=== PATIENT | male | born 1990 | race Caucasian/White ===

== ENCOUNTER 2016-08-06 08:56 | Emergency (ER) | payer OTHER | END 2016-08-06 10:55 | disposition home or self-care (01) | LOC: D.ER 08:56 | DX: T30.0 Burn of unspecified body region, unspecified degree (principal); X08.8XXA Exposure to other specified smoke, fire and flames, initial encounter; Y93.89 Activity, other specified; Y92.9 Unspecified place or not applicable; F17.200 Nicotine dependence, unspecified, uncomplicated ==

== ENCOUNTER 2017-01-18 23:32 | Emergency (ER) | payer OTHER | END 2017-01-19 02:05 | disposition home or self-care (01) | LOC: D.ER 23:32 | DX: S53.401A Unspecified sprain of right elbow, initial encounter (principal); W19.XXXA Unspecified fall, initial encounter; F17.200 Nicotine dependence, unspecified, uncomplicated ==

== ENCOUNTER 2017-01-21 21:48 | Emergency (ER) | payer OTHER ==
[2017-01-21 23:26] LABS: BASOPHILS 0.3 % (0-2); EOSINOPHILS 4.1 % (0-7); HEMATOCRIT 43.7 % (42.0-54.0); HEMOGLOBIN 15.1 g/dL (13.5-17.5); IMMATURE GRANULOCYTES 0.1 % (0-5); LYMPHOCYTES 41.1 % (15-50); MCH 29.7 pg (26.0-34.0); MCHC 34.6 g/dL (31.0-37.0); MCV 85.9 fL (80.0-100.0); MEAN PLATELET VOLUME 11.6 fL (7.4-10.4); MONOCYTES 9.2 % (2-11); NEUTROPHILS 45.2 % (40-80); PLATELET COUNT 193 10x3/uL (130-400); RBC 5.09 10x6/uL (4.20-6.10); RDW 13.4 % (11.5-14.5); WBC 6.8 10x3/uL (4.8-10.8)
[2017-01-21 23:46] LABS: ALKALINE PHOSPHATASE 81 U/L (46-116); ALT (SGPT) 36 U/L (10-68); BILIRUBIN - TOTAL 0.37 mg/dL (0.2-1.3); CALC OSMOLALITY 281 mosm/kg (275-300); CALCIUM 8.7 mg/dL (8.5-10.1); CARBON DIOXIDE 29.4 mmol/L (21.0-32.0); CHLORIDE - SERUM 103 mmol/L (98-107); CREATININE - SERUM 1.2 mg/dL (0.6-1.3); GLUCOSE 106 mg/dL (74-106); POTASSIUM - SERUM 3.4 mmol/L (3.5-5.1); PROTEIN - SERUM 7.3 g/dL (6.4-8.2); SODIUM 141 mmol/L (136-145); UREA NITROGEN 15 mg/dL (7-18); eGFR NON AFRICAN AMERICAN 77 mL/min (90-120)
[2017-01-22 00:10] LABS: CKMB 1.2 U/L (0.0-3.6); CREATINE KINASE 271 UL (21-232); TROPONIN-I < 0.017 ng/mL (0.000-0.060)
== END 2017-01-22 00:30 | disposition home or self-care (01) ==
LOC: D.ER 21:48
PROVIDERS: Nurse Practitioner Family
DX: M94.0 Chondrocostal junction syndrome [Tietze] (principal); R07.89 Other chest pain; F17.200 Nicotine dependence, unspecified, uncomplicated

== ENCOUNTER 2017-03-01 22:50 | Emergency (ER) | payer OTHER ==
[2017-03-02 00:27] LABS: BASOPHILS 0.5 % (0-2); EOSINOPHILS 5.1 % (0-7); HEMOGLOBIN 14.4 g/dL (13.5-17.5); IMMATURE GRANULOCYTES 0.5 % (0-5); LYMPHOCYTES 31.9 % (15-50); MCH 29.1 pg (26.0-34.0); MCHC 34.3 g/dL (31.0-37.0); MONOCYTES 10.5 % (2-11); NEUTROPHILS 51.5 % (40-80); PLATELET COUNT 193 10x3/uL (130-400); RBC 4.94 10x6/uL (4.20-6.10); RDW 13.8 % (11.5-14.5); WBC 8.8 10x3/uL (4.8-10.8)
[2017-03-02 00:43] LABS: APPEARANCE CLEAR (CLEAR); BILIRUBIN NEGATIVE (NEGATIVE); COLOR YELLOW (YELLOW); GLUCOSE NEGATIVE (NEGATIVE); KETONE NEGATIVE (NEGATIVE); LEUKOCYTE ESTERASE TRACE (NEGATIVE); NITRITE NEGATIVE (NEGATIVE); PROTEIN TRACE mg/dL (NEGATIVE); UROBILINOGEN NORMAL (NORMAL)
[2017-03-02 00:44] LABS: BACTERIA NONE SEEN /hpf (NONE SEEN); CALCIUM OXALATE CRYSTALS 0-5 /hpf (NONE SEEN); EPITHELIAL CELLS 0-5 /hpf (0-5); RED CELLS - URINE 0-5 /hpf (0-5); WHITE CELLS - URINE 0-5 /hpf (0-5)
[2017-03-02 00:47] LABS: ALBUMIN 4.1 g/dL (3.4-5.0); ALKALINE PHOSPHATASE 70 U/L (46-116); ALT (SGPT) 34 U/L (10-68); CALC OSMOLALITY 284 mosm/kg (275-300); CALCIUM 8.7 mg/dL (8.5-10.1); CARBON DIOXIDE 26.2 mmol/L (21.0-32.0); CHLORIDE - SERUM 107 mmol/L (98-107); CREATININE - SERUM 1.2 mg/dL (0.6-1.3); GLUCOSE 100 mg/dL (74-106); POTASSIUM - SERUM 3.4 mmol/L (3.5-5.1); PROTEIN - SERUM 6.9 g/dL (6.4-8.2); SODIUM 143 mmol/L (136-145); UREA NITROGEN 12 mg/dL (7-18); eGFR NON AFRICAN AMERICAN 77 mL/min (90-120)
== END 2017-03-02 02:00 | disposition home or self-care (01) ==
LOC: D.ER 22:50
PROVIDERS: Emergency Medicine
DX: S51.811A Laceration without foreign body of right forearm, initial encounter (principal); X58.XXXA Exposure to other specified factors, initial encounter; Y93.89 Activity, other specified; Y92.89 Other specified places as the place of occurrence of the external cause; F17.200 Nicotine dependence, unspecified, uncomplicated

== ENCOUNTER 2017-06-01 03:47 | Emergency (ER) | payer OTHER ==
[2017-06-01 04:57] LABS: BASOPHILS 0.3 % (0-2); HEMATOCRIT 45.1 % (42.0-54.0); HEMOGLOBIN 15.5 g/dL (13.5-17.5); IMMATURE GRANULOCYTES 0.3 % (0-5); LYMPHOCYTES 35.7 % (15-50); MCHC 34.4 g/dL (31.0-37.0); MCV 87.2 fL (80.0-100.0); MEAN PLATELET VOLUME 11.5 fL (7.4-10.4); MONOCYTES 10.9 % (2-11); NEUTROPHILS 46.8 % (40-80); PLATELET COUNT 219 10x3/uL (130-400); RBC 5.17 10x6/uL (4.20-6.10); RDW 12.8 % (11.5-14.5); WBC 7.1 10x3/uL (4.8-10.8)
[2017-06-01 05:22] LABS: ALBUMIN 3.9 g/dL (3.4-5.0); ALKALINE PHOSPHATASE 69 U/L (46-116); ALT (SGPT) 30 U/L (10-68); BILIRUBIN - TOTAL 0.26 mg/dL (0.2-1.3); CALC OSMOLALITY 270 mosm/kg (275-300); CALCIUM 9.2 mg/dL (8.5-10.1); CARBON DIOXIDE 26.8 mmol/L (21.0-32.0); CHLORIDE - SERUM 101 mmol/L (98-107); GLUCOSE 99 mg/dL (74-106); POTASSIUM - SERUM 4.1 mmol/L (3.5-5.1); PROTEIN - SERUM 7.3 g/dL (6.4-8.2); SODIUM 135 mmol/L (136-145); UREA NITROGEN 16 mg/dL (7-18); eGFR NON AFRICAN AMERICAN > 90 mL/min (90-120)
[2017-06-01 05:46] LABS: AMYLASE - SERUM 114 U/L (25-115); C-REACTIVE PROTEIN 0.9 mg/dL (0.0-0.9); CREATINE KINASE 279 UL (21-232); LIPASE 636 U/L (73-393)
[2017-06-01 05:47] LABS: CKMB 1.2 U/L (0.0-3.6)
[2017-06-01 06:07] LABS: UDS - AMPHET NEGATIVE QUAL (NEGATIVE); UDS - BARB NEGATIVE QUAL (NEGATIVE); UDS - BENZO NEGATIVE QUAL (NEGATIVE); UDS - COCAINE NEGATIVE QUAL (NEGATIVE); UDS - OPIATE NEGATIVE QUAL (NEGATIVE); UDS - PCP NEGATIVE QUAL (NEGATIVE); UDS - THC NEGATIVE QUAL (NEGATIVE)
[2017-06-01 06:08] LABS: APPEARANCE CLEAR (CLEAR); COLOR STRAW (YELLOW); NITRITE NEGATIVE (NEGATIVE); PROTEIN NEGATIVE (NEGATIVE)
[2017-06-01 06:09] LABS: BILIRUBIN NEGATIVE (NEGATIVE); GLUCOSE NEGATIVE (NEGATIVE); HCG URINE NEGATIVE; KETONE NEGATIVE (NEGATIVE); UROBILINOGEN NORMAL (NORMAL)
== END 2017-06-01 08:05 | disposition home or self-care (01) ==
LOC: D.ER 03:47
PROVIDERS: Family Medicine
DX: R53.1 Weakness (principal); M54.9 Dorsalgia, unspecified

== ENCOUNTER 2017-12-13 16:34 | Emergency (ER) | payer OTHER ==
[~2017-12-13] VITALS: Ht 177.8 cm; Wt 90.9 kg
[2017-12-13 16:43] VITALS: Ht 177.8 cm; Wt 90.9 kg
[2017-12-13] MEDS ORDERED: OXYCONTIN10 MG PO (16:50)
[2017-12-13 17:11] LABS: BASOPHILS 0.4 % (0-2); EOSINOPHILS 0.4 % (0-7); HEMATOCRIT 43.8 % (42.0-54.0); HEMOGLOBIN 15.9 g/dL (13.5-17.5); IMMATURE GRANULOCYTES 0.1 % (0-5); LYMPHOCYTES 25.7 % (15-50); MCH 30.5 pg (26.0-34.0); MCHC 36.3 g/dL (31.0-37.0); MCV 83.9 fL (80.0-100.0); MEAN PLATELET VOLUME 11.2 fL (7.4-10.4); MONOCYTES 12.1 % (2-11); NEUTROPHILS 61.3 % (40-80); PLATELET COUNT 243 10x3/uL (130-400); RBC 5.22 10x6/uL (4.20-6.10); RDW 12.8 % (11.5-14.5)
[2017-12-13 17:16] LABS: APTT 28.9 SECONDS (22.8-39.4); INR 1.45 (0.85-1.17); PROTIME 17.1 SECONDS (11.6-15.0)
[2017-12-13 17:18] LABS: D-DIMER-QUANTITATIVE < 0.27 ug/mLFEU (0.20-0.54)
[2017-12-13 17:20] LABS: ALBUMIN 4.4 g/dL (3.4-5.0); ALKALINE PHOSPHATASE 80 U/L (46-116); ALT (SGPT) 26 U/L (10-68); BILIRUBIN - TOTAL 0.47 mg/dL (0.2-1.3); CALC OSMOLALITY 276 mosm/kg (275-300); CALCIUM 9.9 mg/dL (8.5-10.1); CARBON DIOXIDE 25.2 mmol/L (21.0-32.0); CHLORIDE - SERUM 100 mmol/L (98-107); CREATININE - SERUM 1.3 mg/dL (0.6-1.3); GLUCOSE 141 mg/dL (74-106); PROTEIN - SERUM 8.1 g/dL (6.4-8.2); SODIUM 138 mmol/L (136-145); UREA NITROGEN 9 mg/dL (7-18); eGFR NON AFRICAN AMERICAN 69 mL/min (90-120)
[2017-12-13 17:33] LABS: CKMB 0.8 U/L (0.0-3.6); CREATINE KINASE 181 UL (21-232); PRO BNP 10 pg/mL (0-125); TROPONIN-I < 0.017 ng/mL (0.000-0.060)
[2017-12-13] MEDS ORDERED: K-TAB10 MEQ PO (19:42)
[2017-12-13 20:14] VITALS: BP 117/63
== END 2017-12-13 20:14 | disposition home or self-care (01) ==
LOC: D.ER 16:34
PROVIDERS: Family Medicine
DX: E87.6 Hypokalemia (principal); R07.9 Chest pain, unspecified; E86.0 Dehydration; R00.2 Palpitations; F17.200 Nicotine dependence, unspecified, uncomplicated

== ENCOUNTER 2018-05-13 21:48 | Emergency (ER) | payer OTHER ==
[~2018-05-13] VITALS: Ht 177.8 cm; Wt 81.4 kg
[~2018-05-13 21:48] MED LIST: K-TAB10 MEQ PO; OXYCONTIN10 MG PO
[2018-05-13 21:53] VITALS: BP 131/72; Ht 177.8 cm; Wt 81.4 kg
[2018-05-13] MEDS ORDERED: VOLTAREN75 MG PO (23:05)
[2018-05-13] MEDS ORDERED: CYCLOBENZAPRINE10 MG PO (23:05)
[2018-05-13] MEDS ORDERED: TYLENOL W/CODEI1 TAB PO (23:05)
== END 2018-05-13 23:45 | disposition home or self-care (01) ==
LOC: D.ER 21:48
DX: M54.5 Low back pain (principal); W18.30XA Fall on same level, unspecified, initial encounter; Y93.89 Activity, other specified; Y92.019 Unspecified place in single-family (private) house as the place of occurrence of the external cause; F17.200 Nicotine dependence, unspecified, uncomplicated

== ENCOUNTER 2018-07-11 02:55 | Emergency (ER) | payer OTHER ==
[~2018-07-11] VITALS: Ht 177.8 cm; Wt 81.8 kg
[~2018-07-11 02:55] MED LIST changes: +CYCLOBENZAPRINE10 MG PO; +TYLENOL W/CODEI1 TAB PO; +VOLTAREN75 MG PO
[2018-07-11 02:59] VITALS: Ht 177.8 cm; Wt 81.8 kg
[2018-07-11] MEDS ORDERED: CILOXAN5 ML RIGHT EYE (03:29)
[2018-07-11 03:42] VITALS: BP 122/78
== END 2018-07-11 03:42 | disposition home or self-care (01) ==
LOC: D.ER 02:55
DX: H10.31 Unspecified acute conjunctivitis, right eye (principal)

== ENCOUNTER 2019-03-06 18:55 | Emergency (ER) | payer OTHER ==
[~2019-03-06] VITALS: Ht 177.8 cm; Wt 95.0 kg
[~2019-03-06 18:55] MED LIST changes: +CILOXAN5 ML RIGHT EYE
[2019-03-06 19:07] VITALS: BP 126/76; Ht 177.8 cm; Wt 95.0 kg
[2019-03-06] MEDS ORDERED: INDOCIN25 MG PO (20:42)
== END 2019-03-06 21:07 | disposition home or self-care (01) ==
LOC: D.ER 18:55
DX: S99.912A Unspecified injury of left ankle, initial encounter (principal); W18.30XA Fall on same level, unspecified, initial encounter; Y93.89 Activity, other specified; Y92.89 Other specified places as the place of occurrence of the external cause; M79.672 Pain in left foot

== ENCOUNTER 2019-04-30 15:18 | Emergency (ER) | payer OTHER ==
[~2019-04-30] VITALS: Ht 177.8 cm; Wt 88.2 kg
[~2019-04-30 15:18] MED LIST changes: +INDOCIN25 MG PO
[2019-04-30 15:39] VITALS: Ht 177.8 cm; Wt 88.2 kg
[2019-04-30] MEDS ORDERED: VOLTAREN75 MG PO (17:18)
[2019-04-30] MEDS ORDERED: PREDNISONE20 MG PO (17:18)
[2019-04-30 17:32] VITALS: BP 119/62
== END 2019-04-30 17:32 | disposition home or self-care (01) ==
LOC: D.ER 15:18
DX: M79.671 Pain in right foot (principal); F17.200 Nicotine dependence, unspecified, uncomplicated